=== PATIENT | female | born 1980 | race Caucasian/White ===

== ENCOUNTER 2017-08-12 14:48 | Emergency (ER) | payer OTHER ==
[2017-08-12] MEDS ORDERED: Ibuprofen 800 MG Tab PO ONE (15:11)
--- NOTE | 2017-08-12 15:12 | EDM.PDOC ---
ED HPI GENERAL MEDICAL PROBLEM - General Chief Complaint: Lower Extremity Injury/Pain Stated Complaint: right knee pain Time Seen by Provider: 08/12/17 14:49 Source of Information: Reports: Patient History Limitations: Reports: No Limitations - History of Present Illness INITIAL COMMENTS - FREE TEXT/NARRATIVE: History of present illness: []Patient stomped on the ground last night trying to stop her from running out the door and she felt sudden pain in her right knee. Review of systems: As per history of present illness and below otherwise all systems reviewed and negative. Past medical history: As per history of present illness and as reviewed below otherwise noncontributory. Surgical history: As per history of present illness and as reviewed below otherwise noncontributory. Social history: No reported history of drug or alcohol abuse. Family history: As per history of present illness and as reviewed below otherwise noncontributory. Physical exam: General: Well developed, well nourished in NAD HEENT: Atraumatic, normocephalic, pupils reactive, negative for conjunctival pallor or scleral icterus, mucous membranes moist, throat clear, neck supple, nontender, trachea midline. Lungs: Clear to auscultation, breath sounds equal bilaterally, chest nontender. Heart: S1S2, regular, negative for clicks, rubs, or JVD. Abdomen: Soft, nondistended, nontender. Negative for masses or hepatosplenomegaly. Negative for costovertebral tenderness. Pelvis: Stable nontender. Genitourinary: Deferred. Rectal: Deferred. Extremities: Atraumatic, negative for cords or calf pain. Neurovascular unremarkable. Neuro: Awake, alert, oriented. Cranial nerves II through XII unremarkable. Cerebellum unremarkable. Motor and sensory unremarkable throughout. Exam nonfocal. Diagnostics: []X-ray right knee no fractures or dislocations Therapeutics: []Chin for pain Impression: []Right knee sprain Plan: []Ibuprofen, ice, follow-up with primary care or Dr. Dietz. Definitive disposition and diagnosis as appropriate pending reevaluation and review of above. Right Knee Pain Score (Numeric/FACES): 6 - Related Data Allergies Allergy/AdvReac Type Severity Reaction Status Date / Time erythromycin base Allergy Chest Pain Verified 08/12/17 15:12 [Erythromycin Base] Home Meds: Home Meds Albuterol [Ventolin HFA] 2 puff INH Q4H 11/26/13 [History] Budesonide/Formoterol Fumarate [Symbicort 160-4.5 Mcg Inhaler] 2 puff INH DAILY 08/12/17 [History] Montelukast Sodium [Singulair] 10 mg PO DAILY 08/12/17 [History] Past Medical History Respiratory History: Reports: Asthma Psychiatric History: Reports: Depression - Past Surgical History GI Surgical History: Reports: Cholecystectomy Other GI Surgeries/Procedures: cholecystectomy 2006 Social & Family History - Family History Family Medical History: Noncontributory Review of Systems - Review of Systems Review Of Systems: See Below (See history of present illness) ED EXAM, GENERAL - Physical Exam Exam: See Below (See history of present illness) Course - Vital Signs Last Recorded V/S: Last Vital Signs Temp 97.8 F 08/12/17 15:09 Pulse 83 08/12/17 15:09 Resp 18 08/12/17 15:09 BP 146/72 H 08/12/17 15:09 Pulse Ox 96 08/12/17 15:09 - Orders/Labs/Meds Orders: Active Orders 24 hr Category Date Time Status Knee 3V Rt [CR] Stat Exams 08/12/17 15:11 Taken Meds: Medications Discontinued Medications Generic Name Dose Route Start Last Admin Trade Name Freq PRN Reason Stop Dose Admin Ibuprofen 800 mg 08/12/17 15:11 08/12/17 15:28 Motrin PO 08/12/17 15:12 800 mg ONETIME ONE Administration Departure - Departure Time of Disposition: 16:04 Disposition: Home, Self-Care 01 Condition: Good Clinical Impression: Right knee sprain Qualifiers: Encounter type: initial encounter Involved ligament of knee: unspecified ligament Qualified Code(s): S83.91XA - Sprain of unspecified site of right knee , initial encounter - Discharge Information Referrals: PCP,None [Primary Care Provider] - Marion Dietz MD [Physician] - (Next available appointment) Forms: ED Department Discharge Additional Instructions: The following information is given to patients seen in the emergency department who are being discharged to home. This information is to outline your options for follow-up care. We provide all patients seen in our emergency department with a follow-up referral. The need for follow-up, as well as the timing and circumstances, are variable depending upon the specifics of your emergency department visit. If you don't have a primary care physician on staff, we will provide you with a referral. We always advise you to contact your personal physician following an emergency department visit to inform them of the circumstance of the visit and for follow-up with them and/or the need for any referrals to a consulting specialist. The emergency department will also refer you to a specialist when appropriate. This referral assures that you have the opportunity for follow-up care with a specialist. All of these measure are taken in an effort to provide you with optimal care, which includes your follow-up. Under all circumstances we always encourage you to contact your private physician who remains a resource for coordinating your care. When calling for follow-up care, please make the office aware that this follow-up is from your recent emergency room visit. If for any reason you are refused follow-up, please contact the [facility] Emergency Department at and asked to speak to the emergency department charge nurse. Ice, elevate, Motrin for pain follow-up with primary care or orthopedics as needed [facility] [address] [place] [id number] [facility] [address], [address] [place] [address] - My Orders Last 24 Hours: My Active Orders 08/12/17 15:11 Knee 3V Rt [CR] Stat - Assessment/Plan Last 24 Hours: My Active Orders 08/12/17 15:11 Knee 3V Rt [CR] Stat
[2017-08-12 17:55] VITALS: BP 149/74
--- NOTE | 2017-08-14 19:01 | CR ---
EXAM DATE: 08/12/17 PATIENT'S AGE: 36 Patient: AYESHA MELISSA Facility: [place], [place] Site . Site : 1980 Study: XRay Knee Right [id number]/12/2018 3:41:32 PM Ordering Physician: Adrien Gaspar Final Report: INDICATION: Stomped foot down and now pain in right knee TECHNIQUE: Knee radiograph 3 views right COMPARISON: None FINDINGS: Bones: No acute fractures or aggressive bone lesions are identified. Joints: The joint spaces of the medial, lateral, and patellofemoral compartments are unremarkable. No significant knee effusion is seen. Soft tissue: Unremarkable. No radiopaque foreign bodies are seen. IMPRESSION: 1. No acute osseous injuries or abnormalities are noted. Dictated by: Dylan Tafoya MD @ 08/12/2017 16:04:59 (Electronic Signature) Report Signed by Proxy. TAO
== END 2017-08-12 16:11 | disposition home or self-care (01) ==
LOC: MW.ED 14:48
DX: S83.91XA Sprain of unspecified site of right knee, initial encounter (principal); J45.909 Unspecified asthma, uncomplicated; F32.9 Major depressive disorder, single episode, unspecified; Z88.1 Allergy status to other antibiotic agents; Z79.899 Other long term (current) drug therapy; W18.39XA Other fall on same level, initial encounter
CPT/HCPCS: 73562; 99283; A9270

== ENCOUNTER 2018-07-24 18:39 | Emergency (ER) | payer OTHER ==
[2018-07-24 18:50] VITALS: BP 140/96
[2018-07-24] MEDS ORDERED: Albuterol/Ipratropium 3.0-0.5 MG/3 ML Neb Soln NEB ONE (18:54)
[2018-07-24] MEDS ORDERED: methylPREDNISolone Sodium Succinate 125 MG/2 ML SDV IM ONE (18:54)
--- NOTE | 2018-07-24 18:55 | EDM.PDOC ---
ED HPI GENERAL MEDICAL PROBLEM - General Chief Complaint: Respiratory Problem Stated Complaint: TROUBLE BREATHING Time Seen by Provider: 07/24/18 18:41 Source of Information: Reports: Patient History Limitations: Reports: No Limitations - History of Present Illness INITIAL COMMENTS - FREE TEXT/NARRATIVE: HISTORY AND PHYSICAL: History of present illness: Patient is a 37-year-old female who presents to the emergency room with complaints of shortness of breath. She does have a history of asthma and routinely uses inhalers. States she has been out of her inhalers over the past 2 days and therefore symptoms have worsened. Patient denies any fever, chills, headache, change in vision, syncope or near syncope. Denies any chest pain or back pain. Denies any abdominal pain, nausea, vomiting, diarrhea, constipation or dysuria. Has not noted any blood in urine or stool. Patient has been eating and drinking appropriately. Review of systems: As per history of present illness and below otherwise all systems reviewed and negative. Past medical history: As per history of present illness and as reviewed below otherwise noncontributory. Surgical history: As per history of present illness and as reviewed below otherwise noncontributory. Social history: See social history for further information Family history: As per history of present illness and as reviewed below otherwise noncontributory. Physical exam: General: Well developed and well-nourished 37-year-old female. Alert and oriented. Nontoxic appearing and in no acute distress. HEENT: Atraumatic, normocephalic, pupils equal and reactive bilaterally, negative for conjunctival pallor or scleral icterus, mucous membranes moist, TMs normal bilaterally, throat clear, neck supple, nontender, trachea midline. No drooling or trismus noted. No meningeal signs. No hot potato voice noted. Lungs: Diminished to auscultation, breath sounds equal bilaterally, chest nontender. Heart: S1S2, regular rate and rhythm without overt murmur Abdomen: Soft, nondistended, nontender. Negative for masses. Pelvis: Stable nontender. Genitourinary: Deferred. Rectal: Deferred. Skin: Intact, warm, dry. No lesions or rashes noted. Extremities: Atraumatic, moves all extremities per self without difficulty or deficits, negative for cords or calf pain. Neurovascular unremarkable. Neuro: Awake, alert, oriented. Cranial nerves II through XII unremarkable. Cerebellum unremarkable. Motor and sensory unremarkable throughout. Exam nonfocal. Notes: I did offer to do an x-ray today, she declines. We'll give her DuoNeb and Solu- Medrol IM. We'll refill her medications. She is aware she needs to have further refills through her primary care provider. Supportive care measures were reviewed and discussed. Voices understanding and is agreeable to plan of care. Denies any further questions or concerns at this time. Diagnostics: None Therapeutics: SoluMedrol, DuoNeb Prescription: Ventolin Symbicort Medrol Dosepak Impression: Asthma Exacerbation Plan: 1. Take your medications as prescribed. 2. Follow-up with your primary care provider for further evaluation and management of medications. Return to the ED as needed and as discussed. Definitive disposition and diagnosis as appropriate pending reevaluation and review of above. - Related Data Allergies Allergy/AdvReac Type Severity Reaction Status Date / Time erythromycin base Allergy Chest Pain Verified 07/24/18 18:47 [Erythromycin Base] Home Meds: Home Meds Albuterol [Ventolin HFA] 2 puff INH Q4H 11/26/13 [History] Budesonide/Formoterol Fumarate [Symbicort 160-4.5 Mcg Inhaler] 2 puff INH DAILY 08/12/17 [History] Montelukast Sodium [Singulair] 10 mg PO DAILY 08/12/17 [History] Levothyroxine 50 mcg PO DAILY 07/24/18 [History] Past Medical History Respiratory History: Reports: Asthma Psychiatric History: Reports: Depression - Infectious Disease History Infectious Disease History: Reports: Chicken Pox, Mumps - Past Surgical History GI Surgical History: Reports: Cholecystectomy Other GI Surgeries/Procedures: cholecystectomy 2006 Social & Family History - Family History Family Medical History: Noncontributory ED ROS GENERAL - Review of Systems Review Of Systems: ROS reveals no pertinent complaints other than HPI. ED EXAM, GENERAL - Physical Exam Exam: See Below (See dictation) Course - Vital Signs Last Recorded V/S: Last Vital Signs Temp 96.9 F 07/24/18 18:47 Pulse 88 07/24/18 18:47 Resp 18 07/24/18 18:47 BP 140/96 H 07/24/18 18:47 Pulse Ox 96 07/24/18 18:47 - Orders/Labs/Meds Orders: Active Orders 24 hr Category Date Time Status RT Aerosol Therapy [RC] ASDIRECTED Care 07/24/18 18:55 Ordered Meds: Medications Discontinued Medications Generic Name Dose Route Start Last Admin Trade Name Palomo PRN Reason Stop Dose Admin Albuterol/Ipratropium 3 ml 07/24/18 18:54 Duoneb 3.0-0.5 Mg/3 Ml NEB 07/24/18 18:55 ONETIME ONE Methylprednisolone Sodium Succinate 125 mg 07/24/18 18:54 Solu-Medrol IM 07/24/18 18:55 ONETIME ONE Departure - Departure Time of Disposition: 18:58 Disposition: Home, Self-Care 01 Clinical Impression: Asthma exacerbation Qualifiers: Asthma severity: mild Asthma persistence: unspecified Qualified Code(s): J45.901 - Unspecified asthma with (acute) exacerbation - Discharge Information Instructions: Asthma, Adult, [id number] Referrals: PCP,Unknown [Primary Care Provider] - Forms: ED Department Discharge Additional Instructions: The following information is given to patients seen in the emergency department who are being discharged to home. This information is to outline your options for follow-up care. We provide all patients seen in our emergency department with a follow-up referral. The need for follow-up, as well as the timing and circumstances, are variable depending upon the specifics of your emergency department visit. If you don't have a primary care physician on staff, we will provide you with a referral. We always advise you to contact your personal physician following an emergency department visit to inform them of the circumstance of the visit and for follow-up with them and/or the need for any referrals to a consulting specialist. The emergency department will also refer you to a specialist when appropriate. This referral assures that you have the opportunity for follow-up care with a specialist. All of these measure are taken in an effort to provide you with optimal care, which includes your follow-up. Under all circumstances we always encourage you to contact your private physician who remains a resource for coordinating your care. When calling for follow-up care, please make the office aware that this follow-up is from your recent emergency room visit. If for any reason you are refused follow-up, please contact the [facility] Emergency Department at and asked to speak to the emergency department charge nurse. [facility] [address] [place] [address] [facility] [address] [place] [address] 1. Take your medications as prescribed. 2. Follow-up with your primary care provider for further evaluation and management of medications. Return to the ED as needed and as discussed. - My Orders Last 24 Hours: My Active Orders 07/24/18 18:55 RT Aerosol Therapy [RC] ASDIRECTED - Assessment/Plan Last 24 Hours: My Active Orders 07/24/18 18:55 RT Aerosol Therapy [RC] ASDIRECTED
== END 2018-07-24 19:25 | disposition home or self-care (01) ==
LOC: MW.ED 18:39
DX: J45.901 Unspecified asthma with (acute) exacerbation (principal); F32.9 Major depressive disorder, single episode, unspecified; Z88.1 Allergy status to other antibiotic agents; Z79.899 Other long term (current) drug therapy
CPT/HCPCS: 94640; 96372; 99282; J2930; 99283; J7620-GY

== ENCOUNTER 2018-10-02 12:42 | Emergency (ER) | payer OTHER ==
--- NOTE | 2018-10-02 13:53 | EDM.PDOC ---
ED HPI GENERAL MEDICAL PROBLEM - General Chief Complaint: Respiratory Problem Stated Complaint: PEANUT STUCK IN LUNG Time Seen by Provider: 10/02/18 13:16 Source of Information: Reports: Patient History Limitations: Reports: No Limitations - History of Present Illness INITIAL COMMENTS - FREE TEXT/NARRATIVE: Presents reporting that 2-1/2 hours ago she threw a handful of trail mix into her mouth. She believes that she inhaled a peanut into her right lung because since that time she has had pain with swallowing and right-sided chest pain but she has not had any cough and is swallowing fine. chest Pain Score (Numeric/FACES): 6 - Related Data Allergies Allergy/AdvReac Type Severity Reaction Status Date / Time erythromycin base Allergy Chest Pain Verified 10/02/18 12:57 [Erythromycin Base] Home Meds: Home Meds Albuterol [Ventolin HFA] 2 puff INH Q4H 11/26/13 [History] Budesonide/Formoterol Fumarate [Symbicort 160-4.5 Mcg Inhaler] 2 puff INH DAILY 08/12/17 [History] Montelukast Sodium [Singulair] 10 mg PO DAILY 08/12/17 [History] Levothyroxine 50 mcg PO DAILY 07/24/18 [History] Past Medical History HEENT History: Reports: None Cardiovascular History: Reports: High Cholesterol, Hypertension Respiratory History: Reports: Asthma Gastrointestinal History: Reports: None Genitourinary History: Reports: None 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 Musculoskeletal History: Reports: None Neurological History: Reports: None Psychiatric History: Reports: Depression Endocrine/Metabolic History: Reports: Hypothyroidism Hematologic History: Reports: None Immunologic History: Reports: None Oncologic (Cancer) History: Reports: None Dermatologic History: Reports: None - Infectious Disease History Infectious Disease History: Reports: Chicken Pox, Mumps - Past Surgical History Head Surgeries/Procedures: Reports: None HEENT Surgical History: Reports: Naso-Sinus Surgery, Tonsillectomy Cardiovascular Surgical History: Reports: None Respiratory Surgical History: Reports: None GI Surgical History: Reports: Cholecystectomy Other GI Surgeries/Procedures: cholecystectomy 2007 Female Surgical History: Reports: None Endocrine Surgical History: Reports: None Neurological Surgical History: Reports: None Musculoskeletal Surgical History: Reports: None Oncologic Surgical History: Reports: None Dermatological Surgical History: Reports: None Social & Family History - Family History Family Medical History: Noncontributory - Tobacco Use Smoking Status *Q: Current Every Day Smoker Years of Tobacco use: 11 Packs/Tins Daily: 0.5 - Caffeine Use Caffeine Use: Reports: Coffee - Recreational Drug Use Recreational Drug Use: No ED ROS GENERAL - Review of Systems Review Of Systems: ROS reveals no pertinent complaints other than HPI. ED EXAM, GENERAL - Physical Exam Exam: See Below Exam Limited By: No Limitations General Appearance: Alert, No Apparent Distress Ears: Normal External Exam Nose: Normal Inspection Throat/Mouth: Normal Inspection Head: Atraumatic, Normocephalic Neck: Normal Inspection Respiratory/Chest: No Respiratory Distress, Lungs Clear, Normal Breath Sounds Cardiovascular: Normal Peripheral Pulses, Regular Rate, Rhythm, No Murmur Back Exam: Normal Inspection Extremities: Normal Inspection, Normal Range of Motion Neurological: Alert, Oriented Psychiatric: Normal Affect, Normal Mood Skin Exam: Warm, Dry, Intact, Normal Color, No Rash Lymphatic: No Adenopathy Course - Vital Signs Last Recorded V/S: Last Vital Signs Temp 35.8 C 10/02/18 12:57 Pulse 87 10/02/18 12:57 Resp 18 10/02/18 12:57 BP 125/83 10/02/18 12:57 Pulse Ox 98 10/02/18 12:57 - Orders/Labs/Meds Orders: Active Orders 24 hr Category Date Time Status Chest 2V [CR] Stat Exams 10/02/18 13:22 Ordered Departure - Departure Time of Disposition: 15:11 Disposition: Home, Self-Care 01 Condition: Good Clinical Impression: Esophageal abrasion Qualifiers: Encounter type: initial encounter Qualified Code(s): S27.818A - Other injury of esophagus (thoracic part), initial encounter - Discharge Information Referrals: [facility] [Outside] [facility] [Outside] Additional Instructions: 1. Follow-up in primary care as discussed for continued symptoms. 2. Return promptly for respiratory symptoms such as shortness of breath, persistent cough, fever, worsening chest pain - My Orders Last 24 Hours: My Active Orders 10/02/18 13:22 Chest 2V [CR] Stat - Assessment/Plan Last 24 Hours: My Active Orders 10/02/18 13:22 Chest 2V [CR] Stat
--- NOTE | 2018-10-02 14:56 | CR ---
EXAMINATION: PA chest radiograph. HISTORY: Expiratory view., Possibly inhaled a: Body. FINDINGS: The trachea is midline. The cardiomediastinal silhouette is within normal limits. No pulmonary infiltrates, effusions or pneumothorax. No evidence of significant atelectasis or air trapping. Osseous structures appear unremarkable. IMPRESSION: No acute cardiopulmonary process.
[2018-10-02 16:48] VITALS: BP 135/84
== END 2018-10-02 15:25 | disposition home or self-care (01) ==
LOC: MW.ED 12:42
DX: S27.818A Other injury of esophagus (thoracic part), initial encounter (principal); E78.00 Pure hypercholesterolemia, unspecified; I10 Essential (primary) hypertension; J45.909 Unspecified asthma, uncomplicated; E03.9 Hypothyroidism, unspecified; F17.210 Nicotine dependence, cigarettes, uncomplicated; Z88.1 Allergy status to other antibiotic agents; Z79.899 Other long term (current) drug therapy; X58.XXXA Exposure to other specified factors, initial encounter
CPT/HCPCS: 71045; 71045-26; 99283-25

== ENCOUNTER 2019-02-23 21:50 | Emergency (ER) | payer OTHER ==
--- NOTE | 2019-02-23 22:14 | EDM.PDOC ---
ED HPI GENERAL MEDICAL PROBLEM - General Chief Complaint: Upper Extremity Injury/Pain Stated Complaint: FELL ON LEFT ARM Time Seen by Provider: 02/23/19 21:58 - History of Present Illness INITIAL COMMENTS - FREE TEXT/NARRATIVE: HISTORY AND PHYSICAL: History of present illness: Patient is a 38-year-old white female presents status post fall which injured her left upper extremities is primarily her forearm and left elbow this occurred when she slipped on the ice in a [employer] parking lot. No other trauma or concern Review of systems: As per history of present illness and below otherwise all systems reviewed and negative. Past medical history: As per history of present illness and as reviewed below otherwise noncontributory. Surgical history: As per history of present illness and as reviewed below otherwise noncontributory. Social history: No reported history of drug or alcohol abuse. Family history: As per history of present illness and as reviewed below otherwise noncontributory. Physical exam: HEENT: Atraumatic, normocephalic, pupils reactive, negative for conjunctival pallor or scleral icterus, mucous membranes moist, throat clear, neck supple, nontender, trachea midline. Lungs: Clear to auscultation, breath sounds equal bilaterally, chest nontender. Heart: S1S2, regular, negative for clicks, rubs, or JVD. Abdomen: Soft, nondistended, nontender. Negative for masses or hepatosplenomegaly. Negative for costovertebral tenderness. Pelvis: Stable nontender. Genitourinary: Deferred. Rectal: Deferred. Extremities: Patient is tenderness to palpation over her left forearm this is nonlocalized is no gross deformity CMS neurovascular exams unremarkable left elbow has no acute findings.. Neuro: Awake, alert, oriented. Cranial nerves II through XII unremarkable. Cerebellum unremarkable. Motor and sensory unremarkable throughout. Exam nonfocal. Diagnostics: X-ray left elbow/forearm Therapeutics: None Impression: #1 acute injury left upper extremity Definitive disposition and diagnosis as appropriate pending reevaluation and review of above. left forearm Pain Score (Numeric/FACES): 8 - Related Data Allergies Allergy/AdvReac Type Severity Reaction Status Date / Time erythromycin base Allergy Chest Pain Verified 02/23/19 22:00 [Erythromycin Base] Home Meds: Home Meds Levothyroxine 50 mcg PO DAILY 07/24/18 [History] Diclofenac Sodium [Diclofono] 0 mg .XX ASDIRECTED 02/23/19 [History] Meloxicam [Mobic] 0 mg PO ASDIRECTED 02/23/19 [History] Past Medical History HEENT History: Reports: None Cardiovascular History: Reports: High Cholesterol, Hypertension Respiratory History: Reports: Asthma Gastrointestinal History: Reports: None Genitourinary History: Reports: None 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: Musculoskeletal History: Reports: None Neurological History: Reports: None Psychiatric History: Reports: Depression Endocrine/Metabolic History: Reports: Hypothyroidism Hematologic History: Reports: None Immunologic History: Reports: None Oncologic (Cancer) History: Reports: None Dermatologic History: Reports: None - Infectious Disease History Infectious Disease History: Reports: Chicken Pox, Mumps - Past Surgical History Head Surgeries/Procedures: Reports: None HEENT Surgical History: Reports: Naso-Sinus Surgery, Tonsillectomy Cardiovascular Surgical History: Reports: None Respiratory Surgical History: Reports: None GI Surgical History: Reports: Cholecystectomy Other GI Surgeries/Procedures: cholecystectomy 2007 Female Surgical History: Reports: None Endocrine Surgical History: Reports: None Neurological Surgical History: Reports: None Musculoskeletal Surgical History: Reports: None Oncologic Surgical History: Reports: None Dermatological Surgical History: Reports: None Social & Family History - Family History Family Medical History: Noncontributory - Tobacco Use Smoking Status *Q: Current Every Day Smoker Years of Tobacco use: 11 Packs/Tins Daily: 1 - Caffeine Use Caffeine Use: Reports: Coffee - Recreational Drug Use Recreational Drug Use: No Review of Systems - Review of Systems Review Of Systems: Comprehensive ROS is negative, except as noted in HPI. ED EXAM, GENERAL - Physical Exam Exam: See Below (See dictation) Course - Vital Signs Last Recorded V/S: Last Vital Signs Temp 36.1 C 02/23/19 21:50 Pulse 82 02/23/19 21:50 Resp 18 02/23/19 21:50 BP 154/90 H 02/23/19 21:50 Pulse Ox 100 02/23/19 21:50 - Orders/Labs/Meds Orders: Active Orders 24 hr Category Date Time Status Elbow 2V Lt [CR] Stat Exams 02/23/19 21:56 Taken Forearm 2V Lt [CR] Stat Exams 02/23/19 21:56 Taken Departure - Departure Time of Disposition: 22:13 Disposition: Home, Self-Care 01 Condition: Good Clinical Impression: Upper extremity injury - Discharge Information Referrals: Alexandria Zuniga NP [Primary Care Provider] - Additional Instructions: The following information is given to patients seen in the emergency department who are being discharged to home. This information is to outline your options for follow-up care. We provide all patients seen in our emergency department with a follow-up referral. The need for follow-up, as well as the timing and circumstances, are variable depending upon the specifics of your emergency department visit. If you don't have a primary care physician on staff, we will provide you with a referral. We always advise you to contact your personal physician following an emergency department visit to inform them of the circumstance of the visit and for follow-up with them and/or the need for any referrals to a consulting specialist. The emergency department will also refer you to a specialist when appropriate. This referral assures that you have the opportunity for followup care with a specialist. All of these measure are taken in an effort to provide you with optimal care, which includes your followup. Under all circumstances we always encourage you to contact your private physician who remains a resource for coordinating your care. When calling for followup care, please make the office aware that this follow-up is from your recent emergency room visit. If for any reason you are refused follow-up, please contact the [facility] emergency department at and asked to speak to the emergency department charge nurse. Sling as directed Motrin/Tylenol as directed follow-up primary medical doctor as needed as discussed return as needed as discussed - My Orders Last 24 Hours: My Active Orders 02/23/19 21:56 Elbow 2V Lt [CR] Stat Forearm 2V Lt [CR] Stat - Assessment/Plan Last 24 Hours: My Active Orders 02/23/19 21:56 Elbow 2V Lt [CR] Stat Forearm 2V Lt [CR] Stat
--- NOTE | 2019-02-23 22:41 | CR ---
HISTORY: Left elbow pain. TECHNIQUE: Two views of the left elbow. COMPARISON: No prior. FINDINGS: No acute fracture or malalignment. No posterior fat pad sign to suggest elbow joint effusion. Joint space appears maintained. IMPRESSION: No acute fracture or malalignment. Dictated by Russel Cuevas MD @ 02/23/2019 10:39:43 PM Dictated by: Russel Cuevas MD @ 02/23/2019 22:39:47 (Electronically Signed)
--- NOTE | 2019-02-23 22:43 | CR ---
HISTORY: Fall, arm pain. TECHNIQUE: Two views of the left forearm. COMPARISON: No prior. FINDINGS: No acute fracture. The radius and ulna appear intact. No radiopaque foreign body or soft tissue gas. IMPRESSION: No acute fracture. Dictated by Russel Cuevas MD @ 02/23/2019 10:41:04 PM Dictated by: Russel Cuevas MD @ 02/23/2019 22:41:08 (Electronically Signed)
[2019-02-23 22:53] VITALS: BP 134/69; PULSE 75
== END 2019-02-23 22:50 | disposition home or self-care (01) ==
LOC: MW.ED 21:50
DX: S49.92XA Unspecified injury of left shoulder and upper arm, initial encounter (principal); I10 Essential (primary) hypertension; E03.9 Hypothyroidism, unspecified; F17.210 Nicotine dependence, cigarettes, uncomplicated; Z88.1 Allergy status to other antibiotic agents; Z79.899 Other long term (current) drug therapy; W00.0XXA Fall on same level due to ice and snow, initial encounter
CPT/HCPCS: 73070-26-LT; 73070-LT; 73090-26-LT; 73090-LT; 99283-25

== ENCOUNTER 2019-03-14 11:18 | Day surgery (SDC) | payer OTHER ==
[~2019-03-14 11:18] MED LIST: Betamethasone Acetate/Betamethasone Sod Phosphate 30 MG/5 ML MDV EPIDUR ONE; Iopamidol 200-M 10 ML vial ITHECAL ONE; Lidocaine 2% 5 ML SDV INJECT ONE; Ropivacaine 0.5% 5 MG/ML 30 ML SDV INJECT ONE
--- NOTE | 2019-03-15 08:49 | OR ---
SURGEON: Bisi Trejo D.O. DATE OF PROCEDURE: 03/14/2019 PRIMARY SURGEON: Bisi Trejo D.O. PROFILE GRINDER TECHNICIAN: OR staff present: 1. Rodrick Menard RN. 2. Michelle Curry RT. PREOPERATIVE DIAGNOSES: 1. Lumbar spondylosis, L4-5, L5-S1, bilateral. 2. Lumbar facet syndrome. 3. Chronic low back pain. POSTOPERATIVE DIAGNOSES: Same PROCEDURES PERFORMED: 1. Right L4-5 facet joint injection. 2. Right L5-S1 facet joint injection. 3. Left L4-5 facet joint injection. 4. Left L5-S1 facet joint injection. 5. Fluoroscopic guidance for needle placement. 6. Local with oral Valium for sedation. SCREENING QUESTIONS: The patient answered "No" to all the following questions: 1. Are you allergic to iodine, Betadine or latex? 2. Do you have a bleeding disorder? 3. Are you on anti-inflammatories or blood thinners? 4. Do you have any current local or systemic infections? DESCRIPTION OF PROCEDURE: The patient had the procedure thoroughly explained including risks, benefits and alternatives. Consent was signed in my clinic indicating understanding and willingness to proceed. The patient presented to [facility] and was escorted to the dressing room to disrobe and change into a hospital gown. Preoperative history and screening were performed by my nurse. Vital signs were taken and stable. The patient reported that Valium 10 milligrams was taken prior to the procedure. The patient was brought back to the procedure room and placed in the prone position on the procedure room table. A pillow was placed under the abdomen in order to flatten the lumbar lordosis. The back was prepped with ChloraPrep and sterilely draped. All personnel in the procedure room were dressed in appropriate attire including surgical scrubs, head and shoe covers. This was to ensure sterility while in the treatment room. During the time fluoroscopy was in use all personnel in the operating room wore lead crocker with thyroid collars. Sterile technique was used during the procedure. Then the fluoroscope was positioned to provide a right oblique view for the right L4-5 and L5-S1 facet joint injections. This was begun by anesthetizing the skin and soft tissues. The fluoroscope was positioned and a sterile 22-gauge 3.5 inch needle was placed at the junction of "the ear of the Al dog" at the L4-5 and L5-S1 facet joints. Precise needle placement was confirmed by fluoroscopy in AP and lateral views. Then 0.2 cubic centimeters of IsoVue-200 contrast dye was injected through microbore tubing under live fluoroscopy and showed no intravascular flow pattern and adequate flow over the target joints. After negative aspiration, 1 cubic centimeters of a mixture of Celestone and 0.5% Ropivacaine was injected at each level without complications. The fluoroscope was then positioned to provide a right oblique view for the L4-5 An L5-S1 facet joint injections.This was begun by anesthetizing the skin and soft tissues. Then using fluoroscopic guidance, a sterile 22-gauge 3.5 inch spinal needle was positioned at the" ear of the Al dog at the L4-5 and L5-S1 facet joints. Precise needle placement was confirmed by fluoroscopy in AP and oblique views, and with 0.2 cubic centimeters of IsoVue-200 contrast dye that was injected through microbore tubing under live fluoroscopy and showed no intravascular flow pattern and adequate flow over the target joints. After negative aspiration, 1 cubic centimeters of a mixture of Celestone and 0.5% Ropivacaine was injected at each level. No complications were noted. The procedure was well tolerated and vital signs were stable during and after the procedure. The staff escorted the patient to the recovery area. The patient was given both oral and written discharge and followup instructions. The patient will follow up with a pain diary which will be evaluated over this evening and next 4 weeks doing things that would normally cause pain. The patient was given both oral and written discharge and followup instructions. The patient voiced understanding including understanding of those signs and symptoms that would require emergency care and knows how to contact the office if there are any questions or concerns in the meantime. PREOPERATIVE PAIN: 6/10. POSTOPERATIVE PAIN: 0/10. FOLLOWUP: Follow up in the Pain Clinic in 1 month. HOGFERMIN / SAHRA /[id number] TAO
== END 2019-03-14 13:50 | disposition home or self-care (01) ==
LOC: MW.SDS 11:18
PROVIDERS: ATTEND Anesthesiology
DX: G89.29 Other chronic pain (principal); M47.816 Spondylosis without myelopathy or radiculopathy, lumbar region; M47.817 Spondylosis without myelopathy or radiculopathy, lumbosacral region; J45.909 Unspecified asthma, uncomplicated; M51.36 Other intervertebral disc degeneration, lumbar region; E78.5 Hyperlipidemia, unspecified; E66.01 Morbid (severe) obesity due to excess calories; F17.210 Nicotine dependence, cigarettes, uncomplicated; Z88.1 Allergy status to other antibiotic agents; Z79.899 Other long term (current) drug therapy; Z68.43 Body mass index [BMI] 50.0-59.9, adult
CPT/HCPCS: 64493; 64494; 81025; J0702; 64490-50

== ENCOUNTER 2019-04-22 08:05 | Emergency (ER) | payer OTHER ==
[2019-04-22] MEDS ORDERED: Albuterol/Ipratropium 3.0-0.5 MG/3 ML Neb Soln NEB ONE (08:26)
[2019-04-22] MEDS ORDERED: Ibuprofen 600 MG Tab PO ONE (08:26)
--- NOTE | 2019-04-22 08:30 | EDM.PDOC ---
ED HPI GENERAL MEDICAL PROBLEM - General Chief Complaint: General Stated Complaint: FEVER, COUGH Time Seen by Provider: 04/22/19 08:27 Source of Information: Reports: Patient History Limitations: Reports: No Limitations - History of Present Illness INITIAL COMMENTS - FREE TEXT/NARRATIVE: Patient is a 38-year-old female with a history of asthma presenting with influenza-like symptoms. Patient states the symptoms started on Monday and progressively worsened. Patient reports feeling intermittent fevers, myalgias, arthralgias, sore throat, congestion. Patient reports the symptoms of exacerbated her asthma and she has run out of her albuterol nebulizer. Patient reports mild chest tightness which is worsened with cold air exposure and coughing. Patient does get some relief from Tylenol. Patient reports sick contact with son who is strep throat. Patient denies any recent travels or rashes on the skin. In addition to that documented in the HPI above, the additional ROS was obtained : Constitutional: Per HPI Eyes: Denies vision changes ENMT: Per HPI CV: Denies chest pain Resp: Per HPI GI: Denies vomiting or diarrhea : Denies painful urination MSK: Denies recent trauma Skin: Denies new rashes Neuro: Denies new numbness or tingling or weakness Endocrine: Denies unexpected weight loss Heme: Denies bleeding disorders I have reviewed the triage vital signs Const: Well nourished, well developed, appears stated age Eyes: PERRL, no conjunctival injection HENT: NCAT, Neck supple without meningismus CV: RRR, Warm, well-perfused extremities RESP: Mild wheezes noted bilaterally with cough. CTAB, Unlabored respiratory effort. No accessory muscle use GI: soft, non-tender, non-distended, no masses MSK: No gross deformities appreciated Skin: Warm, dry. 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 Sensation and motor function of extremities grossly intact. Psych: Appropriate mood and affect Assessment and plan: Patient is a 38-year-old female with asthma presenting with influenza-like symptoms. Patient has mild wheezing but no respiratory distress. Patient given nebulizer in the emergency department. Steroids will be deferred due to influenza-like illness concerns about increased mortality with administration. Patient observed in the emergency department for improvement of respiratory symptoms. Patient feels improved after 1 nebulizer treatment. Patient will be discharged home with refill of asthma medication and given strict return precautions. At this point I do not suspect pneumonia or more serious bacterial illness. Under dressing answered. Patient is a plan Generalized Pain Score (Numeric/FACES): 8 - Related Data Allergies Allergy/AdvReac Type Severity Reaction Status Date / Time erythromycin base Allergy Chest Pain Verified 04/22/19 08:12 [Erythromycin Base] Home Meds: Home Meds Levothyroxine 50 mcg PO DAILY 07/24/18 [History] Diclofenac Sodium [Diclofono] 0 mg .XX ASDIRECTED PRN 02/23/19 [History] Albuterol Sulfate [Proair Hfa] 8.5 gm IH ASDIRECTED PRN 04/22/19 [History] Cyanocobalamin/FA/Pyridoxine [Folbic Tablet] 1 tab PO DAILY 04/22/19 [History] Past Medical History HEENT History: Reports: None Cardiovascular History: Reports: High Cholesterol, Hypertension Respiratory History: Reports: Asthma Gastrointestinal History: Reports: None Genitourinary History: Reports: None 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: Musculoskeletal History: Reports: Back Pain, Chronic Neurological History: Reports: None Psychiatric History: Reports: Depression Endocrine/Metabolic History: Reports: Hypothyroidism Hematologic History: Reports: None Immunologic History: Reports: None Oncologic (Cancer) History: Reports: None Dermatologic History: Reports: None - Infectious Disease History Infectious Disease History: Reports: None - Past Surgical History Head Surgeries/Procedures: Reports: None HEENT Surgical History: Reports: Naso-Sinus Surgery, Tonsillectomy Cardiovascular Surgical History: Reports: None Respiratory Surgical History: Reports: None GI Surgical History: Reports: Cholecystectomy Other GI Surgeries/Procedures: cholecystectomy 2007 Female Surgical History: Reports: None Endocrine Surgical History: Reports: None Neurological Surgical History: Reports: None Musculoskeletal Surgical History: Reports: None Oncologic Surgical History: Reports: None Dermatological Surgical History: Reports: None Social & Family History - Family History Family Medical History: Noncontributory - Tobacco Use Smoking Status *Q: Current Every Day Smoker Years of Tobacco use: 11 Packs/Tins Daily: 1 Used Tobacco, but Quit: No Second Hand Smoke Exposure: Yes - Caffeine Use Caffeine Use: Reports: Coffee - Recreational Drug Use Recreational Drug Use: No ED ROS GENERAL - Review of Systems Review Of Systems: See Below ED EXAM, GENERAL - Physical Exam Exam: See Below Course - Vital Signs Last Recorded V/S: Last Vital Signs Temp 98.0 C H 04/22/19 09:55 Pulse 104 H 04/22/19 08:14 Resp 15 04/22/19 08:14 BP 140/73 04/22/19 08:14 Pulse Ox 95 04/22/19 08:14 - Orders/Labs/Meds Orders: Active Orders 24 hr Category Date Time Status RT Aerosol Therapy [RC] ASDIRECTED Care 04/22/19 08:27 Active Meds: Medications Discontinued Medications Generic Name Dose Route Start Last Admin Trade Name Palomo PRN Reason Stop Dose Admin Albuterol/Ipratropium 3 ml 04/22/19 08:26 04/22/19 09:48 Duoneb 3.0-0.5 Mg/3 Ml NEB 04/22/19 08:27 3 ml ONETIME ONE Administration Ibuprofen 600 mg 04/22/19 08:26 04/22/19 09:55 Motrin PO 04/22/19 08:27 600 mg ONETIME ONE Administration Departure - Departure Time of Disposition: 10:29 Disposition: Home, Self-Care 01 Clinical Impression: Viral syndrome - Discharge Information Referrals: Alexandria Zuniga NP [Primary Care Provider] - Forms: ED Department Discharge Additional Instructions: The following information is given to patients seen in the emergency department who are being discharged to home. This information is to outline your options for follow-up care. We provide all patients seen in our emergency department with a follow-up referral. The need for follow-up, as well as the timing and circumstances, are variable depending upon the specifics of your emergency department visit. If you don't have a primary care physician on staff, we will provide you with a referral. We always advise you to contact your personal physician following an emergency department visit to inform them of the circumstance of the visit and for follow-up with them and/or the need for any referrals to a consulting specialist. The emergency department will also refer you to a specialist when appropriate. This referral assures that you have the opportunity for follow-up care with a specialist. All of these measure are taken in an effort to provide you with optimal care, which includes your follow-up. Under all circumstances we always encourage you to contact your private physician who remains a resource for coordinating your care. When calling for follow-up care, please make the office aware that this follow-up is from your recent emergency room visit. If for any reason you are refused follow-up, please contact the [facility] Emergency Department at and asked to speak to the emergency department charge nurse. Sepsis Event Note - Evaluation Sepsis Screening Result: No Definite Risk - Focused Exam Vital Signs: Vital Signs Temp Temp Pulse Resp BP Pulse Ox 04/22/19 09:55 98.0 C H 04/22/19 08:14 36.4 C 104 H 15 140/73 95 Date Exam was Performed: 04/22/19 Time Exam was Performed: 10:29 - My Orders Last 24 Hours: My Active Orders 04/22/19 08:27 RT Aerosol Therapy [RC] ASDIRECTED - Assessment/Plan Last 24 Hours: My Active Orders 04/22/19 08:27 RT Aerosol Therapy [RC] ASDIRECTED
[2019-04-22 10:54] VITALS: BP 125/69; PULSE 90
== END 2019-04-22 10:54 | disposition home or self-care (01) ==
LOC: MW.ED 08:05
DX: B34.9 Viral infection, unspecified (principal); I10 Essential (primary) hypertension; E78.00 Pure hypercholesterolemia, unspecified; J45.909 Unspecified asthma, uncomplicated; Z79.899 Other long term (current) drug therapy; Z88.1 Allergy status to other antibiotic agents
CPT/HCPCS: 87804; 94640; 99283; A9270; J7620-GY

== ENCOUNTER 2019-09-19 10:50 | Day surgery (SDC) | payer OTHER ==
[2019-09-19] MEDS ORDERED: Ropivacaine 0.5% 5 MG/ML 30 ML SDV INJECT ONE (13:00)
[2019-09-19] MEDS ORDERED: Betamethasone Acetate/Betamethasone Sod Phosphate 30 MG/5 ML MDV EPIDUR ONE (13:00)
[2019-09-19] MEDS ORDERED: Iopamidol 200-M 10 ML vial ITHECAL ONE (13:00)
[2019-09-19] MEDS ORDERED: Lidocaine 2% 5 ML SDV INJECT ONE (13:00)
--- NOTE | 2019-09-20 07:41 | OR ---
SURGEON: Bisi Trejo D.O. DATE OF PROCEDURE: 09/19/2019 PREOPERATIVE DIAGNOSES: 1. Lumbar facet joint arthropathy, bilateral L4-5 and L5-S1. 2. Lumbosacral facet syndrome. POSTOPERATIVE DIAGNOSES: 1. Lumbar facet joint arthropathy, bilateral L4-5 and L5-S1. 2. Lumbosacral facet syndrome. OR STAFF PRESENT: 1. Michelle Black, RT. 2. Arturo Bradshaw, RT. 3. Jarrell Lynch RN. 4. Daquan Wiggins RN. WOUND CLASS: I. PROCEDURES PERFORMED: 1. Right L4-5 facet joint injection. 2. Right L5-S1 facet joint injection. 3. Left L4-5 facet joint injection. 4. Left L5-S1 facet joint injection. 5. Fluoroscopic guidance for needle placement. 6. Local with oral Valium for sedation. SCREENING QUESTIONS: The patient answered "No" to all the following questions: 1. Are you allergic to iodine, Betadine or latex? 2. Do you have a bleeding disorder? 3. Are you on anti-inflammatories or blood thinners? 4. Do you have any current local or systemic infections? MEDICAL NECESSITY: This is a patient with chronic low back pain who comes in for the above diagnostic procedure. This procedure is being performed in accordance with national guidelines written by the [employer]; please see medical necessity note in chart. DESCRIPTION OF PROCEDURE: The patient had the procedure thoroughly explained including risks, benefits and alternatives. Consent was signed in my clinic indicating understanding and willingness to proceed. The patient presented to [facility] and was escorted to the dressing room to disrobe and change into a hospital gown. Preoperative history and screening were performed by my nurse. Vital signs were taken and stable. The patient reported that Valium 10 milligrams was taken prior to the procedure. The patient was brought back to the procedure room and placed in the prone position on the procedure room table. A pillow was placed under the abdomen in order to flatten the lumbar lordosis. The back was prepped with ChloraPrep and sterilely draped. All personnel in the procedure room were dressed in appropriate attire including surgical scrubs, head and shoe covers. This was to ensure sterility while in the treatment room. During the time fluoroscopy was in use all personnel in the operating room wore lead crocker with thyroid collars. Sterile technique was used during the procedure. The fluoroscope was positioned to provide a right oblique view. Then the right L4-5 facet joint block was begun by anesthetizing the skin and soft tissues with 2 cubic centimeters of 2% Preservative-Free Lidocaine with a 25-gauge 1.5 inch needle. There were no signs of infection at the site of needle skin insertions. Using fluoroscopic guidance a sterile 22-gauge 3.5 inch spinal needle was positioned at the "ear of the Al dog". Precise needle placement was confirmed by fluoroscopy and 0.2 cubic centimeters of IsoVue-200 contrast dye which was injected through microbore tubing under live fluoroscopy and showed no intravascular flow pattern and adequate flow over the target . Then 1 mL of a mixture of Celestone and local was injected slowly without complications after negative aspiration. Then the fluoroscope was positioned to provide a right oblique view for the right L5-S1 facet joint injection. This was begun by anesthetizing the skin and soft tissues. The fluoroscope was positioned and a sterile 22-gauge 3.5 inch needle was placed at the junction of the "ear of the Al dog". Precise needle placement was confirmed by fluoroscopy. Then 0.2 cubic centimeters of IsoVue-200 contrast dye was injected through microbore tubing under live fluoroscopy and showed no intravascular flow pattern and adequate flow over the target medial branch. After negative aspiration, 1 cubic centimeters of a mixture of Celestone and local was injected without complications. Then attention was turned to the left side. The fluoroscope was positioned to provide a left oblique view for the left L4-5 facet joint block. This was begun by anesthetizing the skin and soft tissues. Then a 22-gauge 3.5 inch needle was positioned at the junction of the "ear of the Al Dog". Precise needle placement was confirmed by fluoroscopy with 0.2 cubic centimeters of IsoVue-200 contrast dye injected through microbore tubing under live fluoroscopy showing no intravascular flow pattern and adequate flow over the target facet joint. After negative aspiration, 1 cubic centimeters of Celestone and local was injected without complications. The fluoroscope was positioned then to provide a left L5-S1 facet joint block. The skin was anesthetized. Then a 22-gauge 3.5 inch spinal needle was positioned at the junction of the "ear of the Al dog." Precise needle placement was confirmed by fluoroscopy and with 0.2 cubic centimeters of IsoVue-200 contrast dye injected through microbore tubing showing no intravascular flow pattern and adequate flow over the target facet joint. Then 1 cubic centimeters of Celestone and local was injected after negative aspiration without complications. The procedure was well tolerated and vital signs were stable during and after the procedure. The staff escorted the patient to the recovery area. The patient was given both oral and written discharge and followup instructions. The patient will follow up with a pain diary which will be evaluated over this evening doing things that would normally cause pain. We will evaluate the efficacy of the diagnostic lumbar medial branch blocks as the patient will follow up in the clinic the next day. The patient was given both oral and written discharge and followup instructions. The patient voiced understanding including understanding of those signs and symptoms that would require emergency care and knows how to contact the office if there are any questions or concerns in the meantime. PREOPERATIVE PAIN: 5-plus/10. POSTOPERATIVE PAIN: /10. FOLLOWUP: In the Pain Clinic in one month. TITO / SAHRA /[id number] TAO
== END 2019-09-19 14:05 | disposition home or self-care (01) ==
LOC: MW.SDS 10:50
PROVIDERS: ATTEND Anesthesiology
DX: G89.4 Chronic pain syndrome (principal); M47.817 Spondylosis without myelopathy or radiculopathy, lumbosacral region; M51.37 Other intervertebral disc degeneration, lumbosacral region; E78.5 Hyperlipidemia, unspecified; M79.18 Myalgia, other site; E66.01 Morbid (severe) obesity due to excess calories; F17.200 Nicotine dependence, unspecified, uncomplicated; Z68.41 Body mass index [BMI] 40.0-44.9, adult; Z88.1 Allergy status to other antibiotic agents; Z79.899 Other long term (current) drug therapy
CPT/HCPCS: 64493; 64494; J0702; J2001; J2795; Q9966; 64490-50

== ENCOUNTER 2019-09-20 12:05 | Emergency (ER) | payer OTHER ==
[2019-09-20] MEDS ORDERED: Sodium Chloride 0.9% 10 ML Syringe FLUSH PRN (12:24)
[2019-09-20] MEDS ORDERED: Sodium Chloride 0.9% 2.5 ML Syringe FLUSH PRN (12:24)
--- NOTE | 2019-09-20 12:31 | EDM.PDOC ---
ED HPI GENERAL MEDICAL PROBLEM - General Chief Complaint: General Stated Complaint: FEVER AND NOT FEELING WELL AFTER INJECTIONS Time Seen by Provider: 09/20/19 12:12 - History of Present Illness INITIAL COMMENTS - FREE TEXT/NARRATIVE: History of present illness: Today has a severe bifrontal headache. She had a temperature of 103. She feels a little nauseated. She feels rundown some back pain. She has chronic myofascial pain syndrome and yesterday had a lumbar facet injection at multiple sites by Dr Bisi Trejo. Her pain is moderately severe and moving around makes it worse. It is dull in nature. I spoke to Dr. Chaney on the phone and there was no violation of the epidural space yesterday. [] Review of systems: As per history of present illness and below otherwise all systems reviewed and negative. Past medical history: As per history of present illness and as reviewed below otherwise noncontributory. Surgical history: As per history of present illness and as reviewed below otherwise noncontrib utory. Social history: No reported history of drug or alcohol abuse. Family history: As per history of present illness and as reviewed below otherwise noncontributory. Physical exam: HEENT: Atraumatic, normocephalic, pupils reactive, negative for conjunctival pallor or scleral icterus, mucous membranes moist, throat clear, neck supple, nontender, trachea midline. Lungs: Clear to auscultation, breath sounds equal bilaterally, chest nontender. Heart: S1S2, regular, negative for clicks, rubs, or JVD. Abdomen: Soft, nondistended, nontender. Negative for masses or hepatosplenomegaly. Negative for costovertebral tenderness. Pelvis: Stable nontender. Genitourinary: Deferred. Rectal: Deferred. Extremities: Atraumatic, negative for cords or calf pain. Neurovascular unremarkable. Neuro: Awake, alert, oriented. Cranial nerves II through XII unremarkable. Cerebellum unremarkable. Motor and sensory unremarkable throughout. Exam nonfocal. Back: The injection sites are visible where that she had her injection yesterday and they do not appear inflamed Diagnostics: [] Therapeutics: [] Impression: [] Plan: [] Definitive disposition and diagnosis as appropriate pending reevaluation and rev iew of above. headache Pain Score (Numeric/FACES): 3 - Related Data Allergies Allergy/AdvReac Type Severity Reaction Status Date / Time erythromycin base Allergy Chest Pain Verified 09/20/19 12:16 [Erythromycin Base] Home Meds: Home Meds Levothyroxine 50 mcg PO DAILY 07/24/18 [History] Diclofenac Sodium [Diclofono] 0 mg .XX ASDIRECTED PRN 02/23/19 [History] Albuterol Sulfate [Proair Hfa] 8.5 gm IH ASDIRECTED PRN #1 [id number] 04/22/19 [Rx] Cyanocobalamin/FA/Pyridoxine [Folbic Tablet] 1 tab PO DAILY 04/22/19 [History] Azelastine [Astelin Nasal Soln] 1 spray NASBOTH DAILY PRN 09/20/19 [History] Budesonide/Formoterol [Symbicort 160-4.5 MCG] 2 inh INH BID 09/20/19 [History] Montelukast [Singulair] 10 mg PO DAILY 09/20/19 [History] Past Medical History HEENT History: Reports: None Cardiovascular History: Reports: High Cholesterol, Hypertension Respiratory History: Reports: Asthma Gastrointestinal History: Reports: None Genitourinary History: Reports: None 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: Musculoskeletal History: Reports: Back Pain, Chronic Neurological History: Reports: None Psychiatric History: Reports: Depression Endocrine/Metabolic History: Reports: Hypothyroidism Hematologic History: Reports: None Immunologic History: Reports: None Oncologic (Cancer) History: Reports: None Dermatologic History: Reports: None - Infectious Disease History Infectious Disease History: Reports: Chicken Pox - Past Surgical History Head Surgeries/Procedures: Reports: None HEENT Surgical History: Reports: Adenoidectomy, Naso-Sinus Surgery, Tonsillectomy Cardiovascular Surgical History: Reports: None Respiratory Surgical History: Reports: None GI Surgical History: Reports: Cholecystectomy Other GI Surgeries/Procedures: cholecystectomy 2007 Female Surgical History: Reports: None Endocrine Surgical History: Reports: None Neurological Surgical History: Reports: None Musculoskeletal Surgical History: Reports: None Oncologic Surgical History: Reports: None Dermatological Surgical History: Reports: None Social & Family History - Family History Family Medical History: Noncontributory - Tobacco Use Smoking Status *Q: Current Every Day Smoker Years of Tobacco use: 11 Packs/Tins Daily: 0.5 - Caffeine Use Caffeine Use: Reports: Coffee - Recreational Drug Use Recreational Drug Use: No ED ROS GENERAL - Review of Systems Review Of Systems: Comprehensive ROS is negative, except as noted in HPI. ED EXAM, GENERAL - Physical Exam Exam: See Below Free Text/Narrative:: My exam is in the HPI section Course - Vital Signs Text/Narrative:: Patient remained alert in no acute distress. Case was discussed with Dr. Trejo At the beginning of the patient's evaluation and then again at the end. She was on board with the plan. She had provided the patient with her cellular phone number and would make herself available over the weekend. The patient got 2 blood cultures because of her 23,000 white blood cell count and was given the first dose of Rocephin which may not need to be continued depending on how she responds. Last Recorded V/S: Last Vital Signs Temp 98.1 F 09/20/19 14:05 Pulse 74 09/20/19 14:05 Resp 19 09/20/19 14:05 BP 144/87 H 09/20/19 14:05 Pulse Ox 97 09/20/19 14:05 - Orders/Labs/Meds Orders: Active Orders 24 hr Category Date Time Status CULTURE BLOOD [BC] Stat Lab 09/20/19 13:19 Received CULTURE BLOOD [] Stat Lab 09/20/19 13:33 Received CULTURE STREP A CONFIRMATION [] Stat Lab 09/20/19 12:55 Results STREP SCRN A RAPID W CULT CONF [] Stat Lab 09/20/19 12:55 Results Sodium Chloride 0.9% [Saline Flush] Med 09/20/19 12:24 Active 10 ml FLUSH ASDIRECTED PRN Sodium Chloride 0.9% [Saline Flush] Med 09/20/19 12:24 Active 2.5 ml FLUSH ASDIRECTED PRN Blood Culture x2 Reflex Set [OM.PC] Stat Oth 09/20/19 13:16 Ordered Saline Lock Insert [OM.PC] Stat Oth 09/20/19 12:25 Ordered Medication Orders Sodium Chloride (Saline Flush) 10 ml FLUSH ASDIRECTED PRN PRN Reason: Keep Vein Open Sodium Chloride (Saline Flush) 2.5 ml FLUSH ASDIRECTED PRN PRN Reason: Keep Vein Open Labs: Laboratory Tests 09/20/19 09/20/19 09/20/19 Range/Units 12:30 12:36 12:36 WBC 23.10 H (4.0-11.0) K/uL RBC 5.12 (4.30-5.90) M/uL Hgb 15.8 (12.0-16.0) g/dL Hct 46.6 H (36.0-46.0) % MCV 91.0 (80.0-98.0) fL MCH 30.9 (27.0-32.0) pg MCHC 33.9 (31.0-37.0) g/dL RDW Std Deviation 45.3 (28.0-62.0) fl RDW Coeff of Queenie 14 (11.0-15.0) % Plt Count 385 (150-400) K/uL MPV 9.70 (7.40-12.00) fL Neut % (Auto) 86.9 H (48.0-80.0) % Lymph % (Auto) 7.8 L (16.0-40.0) % Gibson % (Auto) 5.1 (0.0-15.0) % Eos % (Auto) 0.1 (0.0-7.0) % Baso % (Auto) 0.1 (0.0-1.5) % Neut # (Auto) 20.1 H (1.4-5.7) K/uL Lymph # (Auto) 1.8 (0.6-2.4) K/uL Gibson # (Auto) 1.2 H (0.0-0.8) K/uL Eos # (Auto) 0.0 (0.0-0.7) K/uL Baso # (Auto) 0.0 (0.0-0.1) K/uL Nucleated RBC % 0.0 /100WBC Nucleated RBCs # 0 K/uL Sodium 138 (136-145) mmol/L Potassium 4.4 (3.5-5.1) mmol/L Chloride 104 (98-107) mmol/L Carbon Dioxide 24.3 (21.0-32.0) mmol/L BUN 11 (7.0-18.0) mg/dL Creatinine 0.8 (0.6-1.0) mg/dL Est Cr Clr Drug Dosing 91.01 mL/min Estimated GFR (MDRD) > 60.0 ml/min Glucose 106 (74-106) mg/dL Calcium 9.5 (8.5-10.1) mg/dL Total Bilirubin 0.4 (0.2-1.0) mg/dL AST 14 L (15-37) IU/L ALT 27 (14-63) IU/L Alkaline Phosphatase 111 (46-116) U/L Total Protein 8.0 (6.4-8.2) g/dL Albumin 4.2 (3.4-5.0) g/dL Globulin 3.8 (2.6-4.0) g/dL Albumin/Globulin Ratio 1.1 (0.9-1.6) Urine Color YELLOW Urine Appearance CLEAR Urine pH 6.0 (5.0-8.0) Ur Specific Gray 1.020 (1.001-1.035) Urine Protein NEGATIVE (NEGATIVE) mg/dL Urine Glucose (UA) NEGATIVE (NEGATIVE) mg/dL Urine Ketones NEGATIVE (NEGATIVE) mg/dL Urine Occult Blood NEGATIVE (NEGATIVE) Urine Nitrite NEGATIVE (NEGATIVE) Urine Bilirubin NEGATIVE (NEGATIVE) Urine Urobilinogen 0.2 (<2.0) EU/dL Ur Leukocyte Esterase NEGATIVE (NEGATIVE) Meds: Medications Generic Name Dose Route Start Last Admin Trade Name Freq PRN Reason Stop Dose Admin Sodium Chloride 10 ml 09/20/19 12:24 Saline Flush FLUSH ASDIRECTED PRN Keep Vein Open Sodium Chloride 2.5 ml 09/20/19 12:24 Saline Flush FLUSH ASDIRECTED PRN Keep Vein Open Discontinued Medications Generic Name Dose Route Start Last Admin Trade Name Freq PRN Reason Stop Dose Admin Ceftriaxone Sodium/Dextrose 1 50 mls @ 100 mls/hr 09/20/19 13:17 09/20/19 13:39 gm/ Premix IV 09/20/19 13:46 100 mls/hr ONETIME ONE Administration Naproxen 500 mg 09/20/19 12:56 09/20/19 13:13 Naprosyn PO 09/20/19 12:57 500 mg ONETIME ONE Administration Departure - Departure Time of Disposition: 14:14 Disposition: Home, Self-Care 01 Condition: Good Clinical Impression: Fever, Headache, Leukocytosis - Discharge Information Instructions: General Headache Without Cause, [id number], Fever, Adult, [id number] Referrals: Alexandria Zuniga NP [Primary Care Provider] - Bisi Trejo DO [Physician] - Forms: ED Department Discharge Additional Instructions: The following information is given to patients seen in the emergency department who are being discharged to home. This information is to outline your options for follow-up care. We provide all patients seen in our emergency department with a follow-up referral. The need for follow-up, as well as the timing and circumstances, are variable depending upon the specifics of your emergency department visit. If you don't have a primary care physician on staff, we will provide you with a referral. We always advise you to contact your personal physician following an emergency department visit to inform them of the circumstance of the visit and for follow-up with them and/or the need for any referrals to a consulting specialist. The emergency department will also refer you to a specialist when appropriate. This referral assures that you have the opportunity for follow-up care with a specialist. All of these measure are taken in an effort to provide you with opti mal care, which includes your follow-up. Under all circumstances we always encourage you to contact your private physician who remains a resource for coordinating your care. When calling for follow-up care, please make the office aware that this follow-up is from your recent emergency room visit. If for any reason you are refused follow-up, please contact the [facility] Emergency Department at and asked to speak to the emergency department charge nurse. [facility] - Primary Care [address] [place], [place] [id number] [place] [address] Sepsis Event Note (ED) - Evaluation Sepsis Screening Result: No Definite Risk - Focused Exam Vital Signs: Vital Signs Temp Pulse Resp BP Pulse Ox 09/20/19 14:05 98.1 F 74 19 144/87 H 97 09/20/19 12:16 98.7 F 80 19 151/94 H 95 - My Orders Last 24 Hours: My Active Orders 09/20/19 12:24 Sodium Chloride 0.9% [Saline Flush] 10 ml FLUSH ASDIRECTED PRN Sodium Chloride 0.9% [Saline Flush] 2.5 ml FLUSH ASDIRECTED PRN 09/20/19 12:25 Saline Lock Insert [OM.PC] Stat 09/20/19 12:55 CULTURE STREP A CONFIRMATION [RM] Stat STREP SCRN A RAPID W CULT CONF [RM] Stat 09/20/19 13:16 Blood Culture x2 Reflex Set [OM.PC] Stat 09/20/19 13:19 CULTURE BLOOD [BC] Stat 09/20/19 13:33 CULTURE BLOOD [BC] Stat - Assessment/Plan Last 24 Hours: My Active Orders 09/20/19 12:24 Sodium Chloride 0.9% [Saline Flush] 10 ml FLUSH ASDIRECTED PRN Sodium Chloride 0.9% [Saline Flush] 2.5 ml FLUSH ASDIRECTED PRN 09/20/19 12:25 Saline Lock Insert [OM.PC] Stat 09/20/19 12:55 CULTURE STREP A CONFIRMATION [RM] Stat STREP SCRN A RAPID W CULT CONF [RM] Stat 09/20/19 13:16 Blood Culture x2 Reflex Set [OM.PC] Stat 09/20/19 13:19 CULTURE BLOOD [BC] Stat 09/20/19 13:33 CULTURE BLOOD [BC] Stat
[2019-09-20] MEDS ORDERED: Naproxen 500 MG Tab PO ONE (12:56)
[2019-09-20 13:01] LABS: BLOOD UREA NITROGEN,BUN 11 mg/dL (7.0-18.0); CARBON DIOXIDE,CO2 24.3 mmol/L (21.0-32.0); CHLORIDE,CL 104 mmol/L (98-107); GLUCOSE RANDOM 106 mg/dL (74-106); POTASSIUM,K 4.4 mmol/L (3.5-5.1); SODIUM,NA 138 mmol/L (136-145)
[2019-09-20] MEDS ORDERED: cefTRIAXone 1 GM in Premix Bag 1 BAG IV ONE (13:17)
[2019-09-20 14:11] VITALS: BP 144/87; PULSE 74
== END 2019-09-20 14:05 | disposition home or self-care (01) ==
LOC: MW.ED 12:05
DX: D72.829 Elevated white blood cell count, unspecified (principal); R51 Headache; I10 Essential (primary) hypertension; J45.909 Unspecified asthma, uncomplicated; E03.9 Hypothyroidism, unspecified; F17.210 Nicotine dependence, cigarettes, uncomplicated; Z88.1 Allergy status to other antibiotic agents; Z79.899 Other long term (current) drug therapy
CPT/HCPCS: 36415; 80053; 81003; 85025; 87040; 87081; 87880; 96365; 99284; A9270; J0696; 99283

== ENCOUNTER 2021-05-09 14:39 | Emergency (ER) | payer OTHER ==
[2021-05-09] MEDS ORDERED: Sodium Chloride 0.9% 1,000 ML IV ONE (14:44)
[2021-05-09] MEDS ORDERED: Ketorolac 30 MG/ML SDV IVPUSH ONE (14:44)
[2021-05-09 15:50] LABS: BLOOD UREA NITROGEN,BUN 13 mg/dL (7.0-18.0); CHLORIDE,CL 104 mmol/L (98-107); GLUCOSE RANDOM 114 mg/dL (74-106); POTASSIUM,K 4.1 mmol/L (3.5-5.1); SODIUM,NA 139 mmol/L (136-145)
[2021-05-09 16:01] LABS: CORONAVIRUS COVID-19 NAA NEGATIVE (NEGATIVE); INFLUENZA A NAA NEGATIVE (NEGATIVE); INFLUENZA B NAA NEGATIVE (NEGATIVE)
[2021-05-09 16:06] VITALS: PULSE 88
[2021-05-09 16:18] VITALS: BP 155/79
== END 2021-05-09 16:17 | disposition home or self-care (01) ==
LOC: MW.ED 14:39
DX: J45.901 Unspecified asthma with (acute) exacerbation (principal); E78.00 Pure hypercholesterolemia, unspecified; I10 Essential (primary) hypertension; E03.9 Hypothyroidism, unspecified; Z88.1 Allergy status to other antibiotic agents; Z79.899 Other long term (current) drug therapy; Z20.822 Contact with and (suspected) exposure to COVID-19
CPT/HCPCS: 0240U; 36415; 71045; 80053; 84484; 85025; 93005; 96374; 99285; J1885; J7030

== ENCOUNTER 2021-11-29 10:14 | Emergency (ER) | payer OTHER ==
[2021-11-29 13:38] LABS: POTASSIUM,K 3.7 mmol/L (3.5-5.1)
[2021-11-29 14:27] VITALS: BP 145/89; PULSE 67
== END 2021-11-29 14:27 | disposition home or self-care (01) ==
LOC: MW.ED 10:14
DX: U07.1 COVID-19 (principal); J45.909 Unspecified asthma, uncomplicated; I10 Essential (primary) hypertension; Z88.1 Allergy status to other antibiotic agents; Z79.899 Other long term (current) drug therapy; Z86.16 Personal history of COVID-19; Z90.49 Acquired absence of other specified parts of digestive tract
CPT/HCPCS: 36415; 71045; 71045-26; 80053; 84484; 84703; 85025; 85379; 93005; 93010; 99284; 99285

== ENCOUNTER 2021-12-01 07:47 | Emergency (ER) | payer OTHER ==
[2021-12-01] MEDS ORDERED: Ondansetron 4 MG/2 ML SDV IVPUSH ONE (08:08)
[2021-12-01] MEDS ORDERED: Sodium Chloride 0.9% 1,000 ML IV ONE (08:08)
[2021-12-01 09:11] LABS: CARBON DIOXIDE,CO2 22.9 mmol/L (21.0-32.0); POTASSIUM,K 3.4 mmol/L (3.5-5.1)
[2021-12-01 09:48] VITALS: BP 124/75; PULSE 65
== END 2021-12-01 09:54 | disposition home or self-care (01) ==
LOC: MW.ED 07:47
DX: R11.2 Nausea with vomiting, unspecified (principal); E78.00 Pure hypercholesterolemia, unspecified; I10 Essential (primary) hypertension; E03.9 Hypothyroidism, unspecified; Z88.1 Allergy status to other antibiotic agents; Z86.16 Personal history of COVID-19
CPT/HCPCS: 36415; 80053; 85025; 96361; 96374; 99284; J2405; J7030

== ENCOUNTER 2022-06-02 13:53 | Emergency (ER) | payer OTHER ==
[2022-06-02 15:46] VITALS: BP 130/85; PULSE 78
== END 2022-06-02 15:45 | disposition home or self-care (01) ==
LOC: MW.ED 13:53
DX: S93.402A Sprain of unspecified ligament of left ankle, initial encounter (principal); E78.00 Pure hypercholesterolemia, unspecified; I10 Essential (primary) hypertension; E03.9 Hypothyroidism, unspecified; J45.909 Unspecified asthma, uncomplicated; Z72.0 Tobacco use; Z88.1 Allergy status to other antibiotic agents; Z79.899 Other long term (current) drug therapy; W00.0XXA Fall on same level due to ice and snow, initial encounter
CPT/HCPCS: 73610-26-LT; 73610-LT; 99283

== ENCOUNTER 2023-08-16 17:14 | Emergency (ER) | payer OTHER ==
[2023-08-16] MEDS: Ibuprofen 800 MG Tab PO ONE (18:02)
[2023-08-16 18:54] VITALS: BP 171/107; PULSE 80
== END 2023-08-16 18:53 | disposition home or self-care (01) ==
LOC: MW.ED 17:14
DX: S66.911A Strain of unspecified muscle, fascia and tendon at wrist and hand level, right hand, initial encounter (principal); I10 Essential (primary) hypertension; E78.00 Pure hypercholesterolemia, unspecified; J45.909 Unspecified asthma, uncomplicated; E03.9 Hypothyroidism, unspecified; Z75.8 Other problems related to medical facilities and other health care; Z88.1 Allergy status to other antibiotic agents; Z79.899 Other long term (current) drug therapy; Z79.890 Hormone replacement therapy; Z79.51 Long term (current) use of inhaled steroids; Z90.49 Acquired absence of other specified parts of digestive tract; X50.1XXA Overexertion from prolonged static or awkward postures, initial encounter; Y93.89 Activity, other specified; Y99.0 Civilian activity done for income or pay
CPT/HCPCS: 73100; 73120; 99283; A9270

== ENCOUNTER 2024-01-26 13:46 | Emergency (ER) | payer OTHER ==
[2024-01-26 14:39] LABS: BASOPHILS ABSOLUTE AUTO 0.07 K/uL (0.00-0.20); BASOPHILS PERCENT AUTO 0.5 % (0.0-1.0); EOSINOPHILS ABSOLUTE AUTO 0.07 K/uL (0.00-0.45); EOSINOPHILS PERCENT AUTO 0.5 % (0.0-6.0); HEMOGLOBIN 14.1 g/dL (12.0-16.0); IMMATURE GRAN ABSOLUTE AUTO 0.04 K/uL (0.00-0.05); IMMATURE GRAN PERCENT AUTO 0.3 % (0.0-0.4); LYMPHOCYTES ABSOLUTE AUTO 1.52 K/uL (1.00-4.80); MEAN CORPUSCULAR HEMOGLOBIN 30.2 pg (28.0-32.0); MEAN CORPUSCULAR HGB CONC 33.6 g/dL (32.0-36.0); MEAN CORPUSCULAR VOLUME 89.9 fL (83.0-99.0); MEAN PLATELET VOLUME 9.3 fL (9.4-12.3); MONOCYTES ABSOLUTE AUTO 0.78 K/uL (0.00-0.80); MONOCYTES PERCENT AUTO 5.7 % (0.0-8.0); NEUTROPHILS ABSOLUTE AUTO 11.32 K/uL (1.80-7.70); PLATELET COUNT,PLT 364 K/uL (150-400); RED BLOOD CELL COUNT 4.67 M/uL (4.10-5.30)
[2024-01-26 15:12] LABS: A/G RATIO 1.1 (0.9-1.6); ALBUMIN 3.7 g/dL (3.4-5.0); BILIRUBIN TOTAL 0.6 mg/dL (0.2-1.0); CALCIUM 8.9 mg/dL (8.5-10.1); CARBON DIOXIDE,CO2 28.9 mmol/L (21.0-32.0); CREATININE 0.9 mg/dL (0.6-1.0); EST CRCL DRUG DOSING (CG) 77.01 mL/min; POTASSIUM,K 4.2 mmol/L (3.5-5.1); PROTEIN TOTAL,TP 7.2 g/dL (6.4-8.2)
[2024-01-26] MEDS: Sodium Chloride 0.9% 1,000 ML IV ONE (15:56)
[2024-01-26] MEDS: Ondansetron 4 MG/2 ML SDV IVPUSH ONE ×2 (15:56→20:16)
[2024-01-26] MEDS: Ketorolac 30 MG/ML SDV IVPUSH ONE (15:56)
[2024-01-26 17:18] LABS: CORONAVIRUS COVID-19 NAA NEGATIVE (NEGATIVE); INFLUENZA A NAA NEGATIVE (NEGATIVE); INFLUENZA B NAA NEGATIVE (NEGATIVE)
[2024-01-26] MEDS: Iopamidol 755 MG/ML 500 ML Multipack Bottle IVPUSH STA (17:24)
[2024-01-26 17:58] LABS: APPEARANCE,URINE CLEAR; BILIRUBIN,URINE NEGATIVE (NEGATIVE); COLOR,URINE YELLOW; GLUCOSE,URINE NEGATIVE (NEGATIVE); KETONES,URINE 15 mg/dL (NEGATIVE); LEUKOCYTE ESTERASE,URINE NEGATIVE (NEGATIVE); NITRITE,URINE NEGATIVE (NEGATIVE); OCCULT BLOOD,URINE NEGATIVE (NEGATIVE); PROTEIN,URINE NEGATIVE (NEGATIVE); UROBILINOGEN,URINE 0.2 EU/dL (<2.0)
[2024-01-26] MEDS: Morphine 2 MG/ML SYRINGE IVPUSH ONE (20:16)
[2024-01-26] MEDS: cefOXitin 2 GM in Sodium Chloride 0.9% 50 ML IV ONE (20:34)
[2024-01-26] MEDS ORDERED: Morphine 2 MG/ML SYRINGE IVPUSH PRN (20:57)
[2024-01-26 22:49] VITALS: BP 148/82; PULSE 90
== END 2024-01-26 22:49 ==
LOC: MW.ED 13:46
DX: K35.80 Unspecified acute appendicitis (principal); I10 Essential (primary) hypertension; E03.9 Hypothyroidism, unspecified; J45.909 Unspecified asthma, uncomplicated; Z86.16 Personal history of COVID-19; Z90.49 Acquired absence of other specified parts of digestive tract; Z79.890 Hormone replacement therapy; Z79.899 Other long term (current) drug therapy; Z88.1 Allergy status to other antibiotic agents; Z75.8 Other problems related to medical facilities and other health care
CPT/HCPCS: 0240U; 36415; 74177; 80053; 81003; 81025; 83690; 84703; 85025; 96361; 96365; 96375; 96376; 99285; J0694; J1885; J2270; J2405; J3490; J7030; Q9967

== ENCOUNTER 2024-02-05 16:27 | Emergency (ER) | payer OTHER ==
[2024-02-05 16:56] LABS: BASOPHILS ABSOLUTE AUTO 0.08 K/uL (0.00-0.20); BASOPHILS PERCENT AUTO 0.6 % (0.0-1.0); EOSINOPHILS ABSOLUTE AUTO 0.23 K/uL (0.00-0.45); EOSINOPHILS PERCENT AUTO 1.7 % (0.0-6.0); HEMOGLOBIN 12.8 g/dL (12.0-16.0); IMMATURE GRAN ABSOLUTE AUTO 0.46 K/uL (0.00-0.05); IMMATURE GRAN PERCENT AUTO 3.4 % (0.0-0.4); LYMPHOCYTES ABSOLUTE AUTO 2.29 K/uL (1.00-4.80); LYMPHOCYTES PERCENT AUTO 16.8 % (24.0-44.0); MEAN CORPUSCULAR HEMOGLOBIN 29.2 pg (28.0-32.0); MEAN CORPUSCULAR HGB CONC 32.8 g/dL (32.0-36.0); MEAN CORPUSCULAR VOLUME 88.8 fL (83.0-99.0); MEAN PLATELET VOLUME 8.8 fL (9.4-12.3); MONOCYTES ABSOLUTE AUTO 0.71 K/uL (0.00-0.80); MONOCYTES PERCENT AUTO 5.2 % (0.0-8.0); NEUTROPHILS ABSOLUTE AUTO 9.89 K/uL (1.80-7.70); NEUTROPHILS PERCENT AUTO 72.3 % (41.0-71.0); PLATELET COUNT,PLT 516 K/uL (150-400); RED BLOOD CELL COUNT 4.39 M/uL (4.10-5.30); WHITE BLOOD CELL COUNT,WBC 13.66 K/uL (3.9-11.3)
[2024-02-05 17:34] LABS: A/G RATIO 0.5 (0.9-1.6); ALANINE AMINOTRANSFERASE,ALT 38 IU/L (14-63); ALBUMIN 2.8 g/dL (3.4-5.0); ALKALINE PHOSPHATASE 154 U/L (46-116); ASPARTATE AMNIOTRANSFERASE,AST 34 IU/L (15-37); BILIRUBIN TOTAL 0.3 mg/dL (0.2-1.0); BLOOD UREA NITROGEN,BUN 8 mg/dL (7.0-18.0); CALCIUM 9.6 mg/dL (8.5-10.1); CARBON DIOXIDE,CO2 27.7 mmol/L (21.0-32.0); CHLORIDE,CL 101 mmol/L (98-107); CREATININE 0.9 mg/dL (0.6-1.0); GLUCOSE RANDOM 119 mg/dL (74-106); POTASSIUM,K 4.1 mmol/L (3.5-5.1); PROTEIN TOTAL,TP 8.1 g/dL (6.4-8.2); SODIUM,NA 137 mmol/L (136-145)
[2024-02-05 17:35] LABS: ESTIMATED GFR 82 mL/min (>60)
[2024-02-05] MEDS: Sodium Chloride 0.9% 1,000 ML IV ONE (19:08)
[2024-02-05 19:45] LABS: COLOR,URINE YELLOW; GLUCOSE,URINE NEGATIVE (NEGATIVE); KETONES,URINE TRACE mg/dL (NEGATIVE); LEUKOCYTE ESTERASE,URINE TRACE (NEGATIVE); NITRITE,URINE NEGATIVE (NEGATIVE); OCCULT BLOOD,URINE SMALL (NEGATIVE); PROTEIN,URINE TRACE mg/dL (NEGATIVE); UROBILINOGEN,URINE 0.2 EU/dL (<2.0)
[2024-02-05 20:02] LABS: APPEARANCE,URINE HAZY; BILIRUBIN,URINE SMALL (NEGATIVE)
[2024-02-05 20:03] LABS: BACTERIA,URINE 1+ (NEGATIVE); EPITHELIAL CELLS,URINE FEW (NONE-FEW); MUCUS,URINE LIGHT (NONE-MOD); RBC,URINE 0-2 (0-2/HPF)
[2024-02-05] MEDS: Morphine 2 MG/ML SYRINGE IVPUSH ONE (20:39)
[2024-02-05] MEDS: Iopamidol 755 Mg/ML 100 ML Bottle IVPUSH ONE (21:15)
[2024-02-05 21:55] VITALS: BP 162/98; PULSE 93
[2024-02-05] MEDS: Piperacillin/Tazobactam 4.5 GM in Sodium Chloride 0.9% 100 ML IV ONE (22:08)
== END 2024-02-06 00:31 ==
LOC: MW.ED 16:27
DX: L02.211 Cutaneous abscess of abdominal wall (principal); E78.00 Pure hypercholesterolemia, unspecified; I10 Essential (primary) hypertension; J45.909 Unspecified asthma, uncomplicated; E03.9 Hypothyroidism, unspecified; Z86.16 Personal history of COVID-19; Z90.49 Acquired absence of other specified parts of digestive tract; Z79.899 Other long term (current) drug therapy; Z88.1 Allergy status to other antibiotic agents; Z75.8 Other problems related to medical facilities and other health care
CPT/HCPCS: 36415; 74177; 80053; 81001; 81025; 85025; 87086; 96361; 96365; 96375; 99285; J2270; J2543; J3490; J7030; Q9967; 87088; 87186; 99284

== ENCOUNTER 2024-02-19 21:27 | Emergency (ER) | payer OTHER ==
[2024-02-19 22:07] LABS: BASOPHILS ABSOLUTE AUTO 0.09 K/uL (0.00-0.20); EOSINOPHILS ABSOLUTE AUTO 0.33 K/uL (0.00-0.45); EOSINOPHILS PERCENT AUTO 3.7 % (0.0-6.0); HEMATOCRIT 37.4 % (37.0-47.0); HEMOGLOBIN 12.4 g/dL (12.0-16.0); IMMATURE GRAN ABSOLUTE AUTO 0.02 K/uL (0.00-0.05); IMMATURE GRAN PERCENT AUTO 0.2 % (0.0-0.4); LYMPHOCYTES ABSOLUTE AUTO 2.38 K/uL (1.00-4.80); LYMPHOCYTES PERCENT AUTO 26.4 % (24.0-44.0); MEAN CORPUSCULAR HEMOGLOBIN 29.6 pg (28.0-32.0); MEAN CORPUSCULAR HGB CONC 33.2 g/dL (32.0-36.0); MEAN CORPUSCULAR VOLUME 89.3 fL (83.0-99.0); MEAN PLATELET VOLUME 9.1 fL (9.4-12.3); MONOCYTES ABSOLUTE AUTO 0.77 K/uL (0.00-0.80); MONOCYTES PERCENT AUTO 8.6 % (0.0-8.0); NEUTROPHILS ABSOLUTE AUTO 5.41 K/uL (1.80-7.70); NEUTROPHILS PERCENT AUTO 60.1 % (41.0-71.0); PLATELET COUNT,PLT 467 K/uL (150-400); RED BLOOD CELL COUNT 4.19 M/uL (4.10-5.30)
[2024-02-19 22:20] LABS: INR 1.01 (0.86-1.11)
[2024-02-19 22:35] LABS: A/G RATIO 0.9 (0.9-1.6); ALANINE AMINOTRANSFERASE,ALT 26 IU/L (14-63); ALBUMIN 3.3 g/dL (3.4-5.0); ALKALINE PHOSPHATASE 129 U/L (46-116); ASPARTATE AMNIOTRANSFERASE,AST 15 IU/L (15-37); BILIRUBIN TOTAL 0.3 mg/dL (0.2-1.0); BLOOD UREA NITROGEN,BUN 13 mg/dL (7.0-18.0); CALCIUM 8.7 mg/dL (8.5-10.1); CARBON DIOXIDE,CO2 26.4 mmol/L (21.0-32.0); CHLORIDE,CL 105 mmol/L (98-107); EST CRCL DRUG DOSING (CG) 69.31 mL/min; GLUCOSE RANDOM 153 mg/dL (74-106); LIPASE 40 U/L (16-77); POTASSIUM,K 3.7 mmol/L (3.5-5.1); PRO B-TYPE NATRIUR PEPT,BNPPRO 33 pg/mL (0-125); PROTEIN TOTAL,TP 7.1 g/dL (6.4-8.2); SODIUM,NA 140 mmol/L (136-145)
[2024-02-19 22:39] LABS: ESTIMATED GFR 73 mL/min (>60)
[2024-02-19] MEDS: Sodium Chloride 0.9% 1,000 ML IV ONE (23:43)
[2024-02-19] MEDS: Iopamidol 755 MG/ML 500 ML Multipack Bottle IVPUSH ONE (23:46)
[2024-02-20] MEDS: Apixaban 5 MG Tab PO STA (00:40)
[2024-02-20] MEDS: oxyCODONE 5 MG Tab PO STA (00:40)
[2024-02-20 00:49] VITALS: BP 139/93; PULSE 78
== END 2024-02-20 00:50 | disposition home or self-care (01) ==
LOC: MW.ED 21:27
DX: I26.93 Single subsegmental thrombotic pulmonary embolism without acute cor pulmonale (principal); I82.4Z1 Acute embolism and thrombosis of unspecified deep veins of right distal lower extremity; D75.839 Thrombocytosis, unspecified; I10 Essential (primary) hypertension; E03.9 Hypothyroidism, unspecified; Z90.49 Acquired absence of other specified parts of digestive tract; Z79.890 Hormone replacement therapy; Z79.51 Long term (current) use of inhaled steroids; Z88.1 Allergy status to other antibiotic agents; Z75.8 Other problems related to medical facilities and other health care
CPT/HCPCS: 36415; 71045; 71275; 74177; 80053; 83690; 83735; 83880; 84484; 84703; 85025; 85610; 93005; 96360; 99285; A9270; J7030; Q9967; 93010

== ENCOUNTER 2024-12-22 17:38 | Emergency (ER) | payer OTHER ==
[2024-12-22 18:21] LABS: BASOPHILS ABSOLUTE AUTO 0.06 K/uL (0.00-0.20); BASOPHILS PERCENT AUTO 0.5 % (0.0-1.0); EOSINOPHILS ABSOLUTE AUTO 0.12 K/uL (0.00-0.45); EOSINOPHILS PERCENT AUTO 1.0 % (0.0-6.0); IMMATURE GRAN ABSOLUTE AUTO 0.03 K/uL (0.00-0.05); IMMATURE GRAN PERCENT AUTO 0.2 % (0.0-0.4); LYMPHOCYTES ABSOLUTE AUTO 2.25 K/uL (1.00-4.80); LYMPHOCYTES PERCENT AUTO 18.3 % (24.0-44.0); MEAN PLATELET VOLUME 9.5 fL (9.4-12.3); MONOCYTES ABSOLUTE AUTO 0.64 K/uL (0.00-0.80); MONOCYTES PERCENT AUTO 5.2 % (0.0-8.0); NEUTROPHILS ABSOLUTE AUTO 9.22 K/uL (1.80-7.70); NEUTROPHILS PERCENT AUTO 74.8 % (41.0-71.0); NRBC ABSOLUTE 0.00 K/uL (0.00-0.02); NRBC PERCENT 0.0 /100WBC (0.0-0.2); PLATELET COUNT,PLT 333 K/uL (150-400); RED BLOOD CELL COUNT 4.83 M/uL (4.10-5.30); WHITE BLOOD CELL COUNT,WBC 12.32 K/uL (3.9-11.3)
[2024-12-22 18:45] LABS: A/G RATIO 1.1 (0.9-1.6); ALANINE AMINOTRANSFERASE,ALT 23.0 IU/L (14-63); ASPARTATE AMNIOTRANSFERASE,AST 14.0 IU/L (15-37); BILIRUBIN TOTAL 0.3 mg/dL (0.2-1.0); BLOOD UREA NITROGEN,BUN 11.0 mg/dL (7.0-18.0); CARBON DIOXIDE,CO2 25.7 mmol/L (21.0-32.0); CHLORIDE,CL 107.0 mmol/L (98-107); CREATININE 0.8 mg/dL (0.6-1.0); EST CRCL DRUG DOSING (CG) 85.76 mL/min; GLUCOSE RANDOM 142.0 mg/dL (74-106); POTASSIUM,K 3.8 mmol/L (3.5-5.1); PROTEIN TOTAL,TP 6.8 g/dL (6.4-8.2); SODIUM,NA 143.0 mmol/L (136-145)
[2024-12-22 18:47] LABS: ESTIMATED GFR 94.0 mL/min (>60)
[2024-12-22 19:12] VITALS: BP 182/104; PULSE 97
== END 2024-12-22 19:12 | disposition home or self-care (01) ==
LOC: MW.ED 17:38
DX: J06.9 Acute upper respiratory infection, unspecified (principal); I10 Essential (primary) hypertension; E11.9 Type 2 diabetes mellitus without complications; E03.9 Hypothyroidism, unspecified; F17.200 Nicotine dependence, unspecified, uncomplicated; Z75.3 Unavailability and inaccessibility of health-care facilities; Z79.899 Other long term (current) drug therapy; Z79.890 Hormone replacement therapy; Z88.8 Allergy status to other drugs, medicaments and biological substances; Z91.018 Allergy to other foods; Z90.49 Acquired absence of other specified parts of digestive tract
CPT/HCPCS: 36415; 71045; 80053; 85025; 85379; 87426; 99285; A9270; J7620; 99283